=== PATIENT | female | born 1995 | race Caucasian/White ===

== ENCOUNTER 2018-05-07 13:51 | Emergency (ER) | payer MEDICAID, OTHER ==
[~2018-05-07] VITALS: Ht 170.2 cm; Wt 56.7 kg
[2018-05-07 13:58] VITALS: BP 122/68
--- NOTE | 2018-05-07 14:02 | NUR ---
PT AMBULATED TO BED 9 REPORT GIVEN TO MOMO EDMOND. URINE OBTAINED.
[2018-05-07] MEDS ORDERED: NACL 0.9% 1,000 ML IV SCH (14:26)
[2018-05-07] MEDS ORDERED: ONDANSETRON 4 MG/2 ML VIAL IVP ONE (14:30)
[2018-05-07] MEDS ORDERED: KETOROLAC 30 MG/ML VIAL IVP ONE (14:30)
[2018-05-07] MEDS ORDERED: MORPHINE SULFATE 2 MG/ML SYR IVP ONE (14:30)
--- NOTE | 2018-05-07 14:52 | NUR ---
PATIENT PRESENTS TO ED WITH RLQ PAIN NON RADIATING X LAST NIGHT---N/V YESTERDAY---MILD NAUSEA TODAY--NO REBOUND NOTED .DENIES WATERY/LOOSE STOOLS. SKIN IS PINK/WARM/DRY; AAOX4 WITH EVEN AND STEADY GAIT; LUNGS CLEAR BL; HR EVEN AND REGULAR; PT DENIES ANY FEVER, CP, SOB, OR COUGH AT THIS TIME; PATIENT STATES PAIN OF 7/10 AT THIS TIME; VSS; PATIENT POSITIONED FOR COMFORT; HOB ELEVATED; BEDRAILS UP X2; BED DOWN. ER MD MADE AWARE OF PT STATUS.
[2018-05-07 15:01] LABS: APPEARANCE,URINE CLEAR (CLEAR); BILIRUBIN,URINE NEGATIVE (NEGATIVE); BLOOD, URINE NEGATIVE (NEGATIVE); COLOR,URINE YELLOW (YELLOW); LEUKOCYTE ESTERASE ,URINE NEGATIVE (NEGATIVE); NITRITE, URINE NEGATIVE (NEGATIVE); UGLUCOSE NEGATIVE (NEGATIVE)
[2018-05-07 15:11] LABS: BASOPHILS % (AUTO) 0.3 % (0.0-2.0); EOSINOPHILS # (AUTO) 0.1 K/uL (0-0.4); EOSINOPHILS % (AUTO) 1.4 % (0.0-4.0); HEMATOCRIT 36.8 % (36-48); HEMOGLOBIN 12.2 g/dL (12.0-16.0); LYMPHOCYTES # (AUTO) 2.2 K/uL (2.5-16.5); LYMPHOCYTES % (AUTO) 30.7 % (20.5-51.1); MEAN CORPUSCULAR HEMOGLOBIN 28 pg (27-31); MEAN CORPUSCULAR HGB CONC 33 g/dL (33-37); MEAN CORPUSCULAR VOLUME 85.4 fL (80-94); MONOCYTES # (AUTO) 0.4 K/uL (0.8-1.0); MONOCYTES % (AUTO) 5.9 % (1.7-9.3); NEUTROPHILS # (AUTO) 4.3 K/uL (1.8-7.7); NEUTROPHILS % (AUTO) 61.7 % (42.2-75.2); PLATELET COUNT (AUTO) 348 K/uL (140-450); RED BLOOD CELL COUNT(AUTO) 4.31 MIL/uL (4.20-5.40); RED CELL DISTRIBUTION WIDTH 13.9 % (11.6-13.7)
--- NOTE | 2018-05-07 15:11 | NUR ---
BLOOD COLLECTED AT IV START--- [facility]
[2018-05-07 15:21] LABS: ANION GAP 12.2 (8-16); CARBON DIOXIDE 26.5 mmol/L (21-32); CREATININE 0.9 mg/dL (0.6-1.3); POTASSIUM 3.7 mmol/L (3.5-5.1)
[2018-05-07 15:27] LABS: ALBUMIN 4.4 g/dL (3.4-5.0); TOTAL BILIRUBIN 1.2 mg/dL (0.0-1.0)
--- NOTE | 2018-05-07 16:10 | NUR ---
Patient returned from CT scan. RN re-evaluating patient at bedside.
--- NOTE | 2018-05-07 17:10 | NUR ---
Patient discharged with v/s stable. Written and verbal after care instructions given and explained. Patient alert, oriented and verbalized understanding of instructions. Ambulatory with steady gait. All questions addressed prior to discharge. ID band removed. Patient advised to follow up with PMD. Rx of KETOROLAC given. Patient educated on indication of medication including possible reaction and side effects. Opportunity to ask questions provided and answered.
[2018-05-07 17:13] VITALS: BP 109/61
== END 2018-05-07 17:10 | disposition home or self-care (01) ==
LOC: MED 13:51
DX: N83.201 Unspecified ovarian cyst, right side (principal); R11.2 Nausea with vomiting, unspecified
CPT/HCPCS: 36415; 74177; 76856; 80053; 81002; 81003; 81025; 82150; 83690; 84703; 85025; 96361; 96374; 96375; 99285; J1885; J2270; J2405; Q9967

== ENCOUNTER 2018-05-26 23:03 | Emergency (ER) | payer OTHER ==
[~2018-05-26] VITALS: Ht 170.2 cm; Wt 54.4 kg
[2018-05-26 23:16] VITALS: BP 134/76
--- NOTE | 2018-05-26 23:16 | NUR ---
PT BIB FATHER, AMBULATED TO BED 8 IN ED FOR BEDSIDE TRIAGE.
--- NOTE | 2018-05-26 23:21 | NUR ---
REPORT TO PATRICK EDMOND
--- NOTE | 2018-05-26 23:41 | NUR ---
PT BIB SELF C/O LEFT WRIST SWELLING THAT STARTED AT WORK WELL MUSCLE "TIGHTNESS" FROM LEFT NECK TO LEFT HAND AND NUMBESS . PT CURRENTLY C/O LEFT SIDED NECK "TIGHTNESS". NO FACIAL DROPPING NOTED, PT HAS FULL CLEAR SENTENCES, PT LAYING IN BED, AWAKE AND ACTING APPROPRIATE. NO PMH, NKDA
--- NOTE | 2018-05-27 00:10 | NUR ---
PT LAYING IN BED, CALM, WILL CONTINUE TO MONITOR .
[2018-05-27] MEDS ORDERED: METOCLOPRAMIDE 10 MG/2 ML INJ VIAL IVP ONE (00:35)
[2018-05-27] MEDS ORDERED: NACL 0.9% 1,000 ML IV ONE (00:35)
[2018-05-27] MEDS ORDERED: DEXAMETHASONE 10 MG/ML VIAL IVP ONE (00:35)
[2018-05-27] MEDS ORDERED: diphenhydrAMINE 50 MG/ML VIAL IVP ONE (00:35)
[2018-05-27 02:13] LABS: BILIRUBIN,URINE NEGATIVE (NEGATIVE); BLOOD, URINE NEGATIVE (NEGATIVE); LEUKOCYTE ESTERASE ,URINE NEGATIVE (NEGATIVE); NITRITE, URINE NEGATIVE (NEGATIVE); PH,URINE 6.5 (5.0-9.0); UGLUCOSE NEGATIVE (NEGATIVE)
[2018-05-27 02:14] LABS: APPEARANCE,URINE CLEAR (CLEAR); COLOR,URINE YELLOW (YELLOW)
--- NOTE | 2018-05-27 02:17 | NUR ---
Patient discharged with v/s stable. Written and verbal after care instructions given and explained. Patient verbalized understanding. Ambulatory with steady gait. All questions addressed prior to discharge. Advised to follow up with PMD.
[2018-05-27 02:18] VITALS: BP 132/75
== END 2018-05-27 02:18 | disposition home or self-care (01) ==
LOC: MED 23:03
DX: M54.12 Radiculopathy, cervical region (principal); M79.642 Pain in left hand; R51 Headache; R20.2 Paresthesia of skin; N83.201 Unspecified ovarian cyst, right side
CPT/HCPCS: 81003; 81025; 96374; 96375; 99284; J1100; J1200; J2765; 99283

== ENCOUNTER 2019-09-07 06:42 | Day surgery (SDC) | payer OTHER ==
[~2019-09-07] VITALS: Ht 170.2 cm; Wt 59.4 kg
[2019-09-07] MEDS ORDERED: GLYCOPYRROLATE 0.2 MG/ML VIAL ONE (08:25)
[2019-09-07] MEDS ORDERED: ROCURONIUM 50 MG/5 ML VIAL IV ONE (08:25)
[2019-09-07] MEDS ORDERED: KETOROLAC 30 MG/ML VIAL ONE (08:25)
[2019-09-07] MEDS ORDERED: NEOSTIGMINE 1:1000 10 MG/10 ML VIAL ONE (08:25)
[2019-09-07] MEDS ORDERED: DEXAMETHASONE 4 MG/ML VIAL ONE (08:25)
[2019-09-07] MEDS ORDERED: DESFLURANE 240 ML BTL INH ONE (08:25)
[2019-09-07] MEDS ORDERED: LIDOCAINE 2% 100 MG/5 ML SYR IVP ONE (08:25)
[2019-09-07] MEDS ORDERED: ONDANSETRON 4 MG/2 ML VIAL ONE (08:25)
[2019-09-07] MEDS ORDERED: SUCCINYLCHOLINE CHLORIDE 200 MG/10 ML VIAL IVP ONE (08:25)
[2019-09-07] MEDS ORDERED: PROPOFOL 200 MG/20 ML VIAL IV ONE (08:25)
[2019-09-07] MEDS ORDERED: BUPIVACAINE-MPF/EPI 0.25% 30 ML VIAL INJ ONE (08:27)
[2019-09-07] MEDS ORDERED: MIDAZOLAM 2 MG/2 ML VIAL ONE (08:30)
[2019-09-07] MEDS ORDERED: fentaNYL 0.05 MG/ML VIAL ONE (08:30)
[2019-09-07] MEDS ORDERED: ONDANSETRON 4 MG/2 ML VIAL IVP PRN (08:55)
[2019-09-07] MEDS ORDERED: HYDROmorphone 1 MG/ML AMP IVP PRN (08:55)
== END 2019-09-07 11:20 | disposition home or self-care (01) ==
LOC: MDS 06:42 → MMU 06:44 → MDS 11:20
PROVIDERS: ATTEND Obstetrics & Gynecology
DX: N80.9 Endometriosis, unspecified (principal); G89.29 Other chronic pain; R10.2 Pelvic and perineal pain; F17.200 Nicotine dependence, unspecified, uncomplicated; Z98.890 Other specified postprocedural states; Z80.0 Family history of malignant neoplasm of digestive organs
CPT/HCPCS: 49320; J0330; J1100; J1885; J2001; J2250; J2405; J2704; J2710; J3010; J3490; J7120

== ENCOUNTER 2019-12-12 15:18 | Emergency (ER) | payer OTHER ==
[~2019-12-12] VITALS: Ht 170.2 cm; Wt 60.8 kg
[2019-12-12 15:20] VITALS: BP 108/70
--- NOTE | 2019-12-12 16:56 | NUR ---
Pt presents ambulatory to ED, c/o productive cough with thick brown mucus, x2 weeks. Pt reports SOB x1 week. Reports chest pain with coughing/deep breaths x4 days. Pt awake and alert, skin normal color warm and dry, rr even and ulnabored. Hx endometriosis
[2019-12-12 17:37] VITALS: BP 105/75
--- NOTE | 2019-12-12 17:38 | NUR ---
Patient discharged with v/s stable. Written and verbal after care instructions given and explained. Patient alert, oriented and verbalized understanding of instructions. Ambulatory with steady gait. All questions addressed prior to discharge. ID band removed. Patient advised to follow up with PMD. Rx of flonase, promethazine DM, ibuprofen given. Patient educated on indication of medication including possible reaction and side effects. Opportunity to ask questions provided and answered.
== END 2019-12-12 17:37 | disposition home or self-care (01) ==
LOC: MED 15:18
DX: B34.9 Viral infection, unspecified (principal)
CPT/HCPCS: 71045; 81002; 81025; 99283

== ENCOUNTER 2020-07-10 15:31 | Emergency (ER) | payer OTHER ==
[~2020-07-10] VITALS: Ht 170.2 cm; Wt 62.6 kg
[2020-07-10 15:43] VITALS: BP 150/99
--- NOTE | 2020-07-10 16:02 | NUR ---
C/O SHARP VAGINAL PAIN AND PELVIC PAIN X3 WEEKS. PT STATES SHE HAS HAD SURGERY FOR ENDOMETRIOSIS TWICE BEFORE AND IT FEELS LIKE THE SAME PAIN SHE HAD PRIOR TO THAT. PT STATES SHE HAS FREQUENT SPOTTING. DENIES NEW SEXUAL PARTNERS OR VAGINAL DISCHARGE. PT ALSO C/O BURNING FEELING TO BOTH BREASTS. PROVIDED PT WITH GOWN. BED IN LOW POSITION.
--- NOTE | 2020-07-10 16:47 | NUR ---
US AT BEDSIDE
[2020-07-10 17:02] LABS: APPEARANCE,URINE CLEAR (CLEAR); BILIRUBIN,URINE NEGATIVE (NEGATIVE); BLOOD, URINE 3+ (NEGATIVE); COLOR,URINE YELLOW (YELLOW); LEUKOCYTE ESTERASE ,URINE NEGATIVE (NEGATIVE); NITRITE, URINE NEGATIVE (NEGATIVE); PH,URINE 5.5 (5.0-9.0); UGLUCOSE NEGATIVE (NEGATIVE)
[2020-07-10 17:23] LABS: BASOPHILS % (AUTO) 0.4 % (0.0-2.0); EOSINOPHILS # (AUTO) 0.1 K/uL (0-0.4); EOSINOPHILS % (AUTO) 1.1 % (0.0-4.0); HEMATOCRIT 35.8 % (36-48); HEMOGLOBIN 11.9 g/dL (12.0-16.0); LYMPHOCYTES % (AUTO) 28.1 % (20.5-51.1); MEAN CORPUSCULAR HEMOGLOBIN 29 pg (27-31); MEAN CORPUSCULAR HGB CONC 33 g/dL (33-37); MEAN CORPUSCULAR VOLUME 85.8 fL (80-94); MONOCYTES # (AUTO) 0.5 K/uL (0.8-1.0); MONOCYTES % (AUTO) 6.4 % (1.7-9.3); NEUTROPHILS # (AUTO) 4.5 K/uL (1.8-7.7); PLATELET COUNT (AUTO) 358 K/uL (140-450); RED BLOOD CELL COUNT(AUTO) 4.17 MIL/uL (4.20-5.40); RED CELL DISTRIBUTION WIDTH 13.3 % (11.6-13.7); WHITE BLOOD COUNT (AUTO) 7.1 K/uL (4.8-10.8)
--- NOTE | 2020-07-10 17:30 | NUR ---
PENDING LAB RESULTS
[2020-07-10 17:33] LABS: ALBUMIN 3.7 g/dL (3.4-5.0); ANION GAP 10.9 (8-16); CARBON DIOXIDE 26.4 mmol/L (21-32); CREATININE 0.7 mg/dL (0.6-1.3); POTASSIUM 4.3 mmol/L (3.5-5.1); TOTAL BILIRUBIN 0.7 mg/dL (0.0-1.0)
[2020-07-10] MEDS ORDERED: KETOROLAC 30 MG/ML VIAL IM ONE (17:50)
--- NOTE | 2020-07-10 17:51 | NUR ---
DR MACKENZIE NOTIFIED THAT PT HAS PAIN 03/27 Addendum: 07/10/20 at [id number] by [email or web address] H/A
[2020-07-10] MEDS: IBUPROFEN 600 MG TAB PO ONE (17:55)
--- NOTE | 2020-07-10 17:55 | NUR ---
MOTRIN PO ADMINISTERED
[2020-07-10 17:57] LABS: RBC,URINE 20-50 /HPF (0-5); WBC,URINE 0-5 /HPF (0-5)
[2020-07-10 18:22] VITALS: BP 113/70
--- NOTE | 2020-07-10 18:22 | NUR ---
Patient discharged with v/s stable. Written and verbal after care instructions given and explained. Patient alert, oriented and verbalized understanding of instructions. Ambulatory with steady gait. All questions addressed prior to discharge. ID band removed. Patient advised to follow up with PMD. Rx of MIRALAX, AND NORCO given. Patient educated on indication of medication including possible reaction and side effects. Opportunity to ask questions provided and answered. PT ISNTRUCTED TO NOT DRIVE AFTER TAKING NORCO IT MAY IMPAIR DRIVING AND CAUSE DROWSINESS EXPLAINED THAT US IS NEGATIVE AND LABS ARE WNL
--- NOTE | 2020-07-10 18:22 | NUR ---
NADR, PAIN 12/25
== END 2020-07-10 18:22 | disposition home or self-care (01) ==
LOC: MED 15:31
DX: R10.9 Unspecified abdominal pain (principal); Z98.890 Other specified postprocedural states
CPT/HCPCS: 36415; 76856; 80053; 81001; 81025; 84702; 85025; 93976; 99284; Q0092

== ENCOUNTER 2021-04-24 15:17 | Emergency (ER) | payer OTHER ==
[~2021-04-24] VITALS: Ht 170.2 cm; Wt 59.0 kg
[2021-04-24 15:21] VITALS: BP 120/77
--- NOTE | 2021-04-24 15:26 | NUR ---
ROB. HANDED ON URINE CUP.
--- NOTE | 2021-04-24 16:09 | NUR ---
Patient ambulated to bed 10. RN evaluating the patient at bedside.
[2021-04-24] MEDS ORDERED: KETOROLAC 15 MG/ML VIAL IM ONE (16:25)
--- NOTE | 2021-04-24 16:39 | NUR ---
C/O LLQ ABD PAINLEFT LOWER BACK & LEFT THIGH , NAUSEA X LAST NIGHT. PMH: TIM OVARIAN CYST, ENDOMETRIOSIS
[2021-04-24 16:40] LABS: BASOPHILS % (AUTO) 0.5 % (0.0-2.0); EOSINOPHILS # (AUTO) 0.1 K/uL (0-0.4); EOSINOPHILS % (AUTO) 1.5 % (0.0-4.0); HEMATOCRIT 38.7 % (36-48); LYMPHOCYTES # (AUTO) 1.8 K/uL (2.5-16.5); LYMPHOCYTES % (AUTO) 25.5 % (20.5-51.1); MEAN CORPUSCULAR HEMOGLOBIN 29 pg (27-31); MEAN CORPUSCULAR HGB CONC 34 g/dL (33-37); MEAN CORPUSCULAR VOLUME 87.6 fL (80-94); MONOCYTES # (AUTO) 0.3 K/uL (0.8-1.0); MONOCYTES % (AUTO) 4.9 % (1.7-9.3); NEUTROPHILS # (AUTO) 4.8 K/uL (1.8-7.7); NEUTROPHILS % (AUTO) 67.6 % (42.2-75.2); PLATELET COUNT (AUTO) 359 K/uL (140-450); RED BLOOD CELL COUNT(AUTO) 4.42 MIL/uL (4.20-5.40); RED CELL DISTRIBUTION WIDTH 13.4 % (11.6-13.7); WHITE BLOOD COUNT (AUTO) 7.2 K/uL (4.8-10.8)
[2021-04-24 16:52] LABS: PROTHROMBIN TIME 10.8 secs (10.8-13.4)
[2021-04-24 16:56] LABS: ALBUMIN 4.6 g/dL (3.4-5.0); CREATININE 0.6 mg/dL (0.6-1.3); TOTAL BILIRUBIN 1.1 mg/dL (0.0-1.0)
[2021-04-24] MEDS ORDERED: IBUP-2213 PO (18:45)
[2021-04-24 18:52] VITALS: BP 120/77
== END 2021-04-24 18:51 | disposition home or self-care (01) ==
LOC: MED 15:17
DX: M54.5 Low back pain (principal); R10.32 Left lower quadrant pain; R11.0 Nausea
CPT/HCPCS: 36415; 76830; 76856; 80053; 81025; 85025; 85610; 96372; 99285; J1885; 99284

== ENCOUNTER 2022-02-16 15:23 | Observation (INO) | payer OTHER ==
[~2022-02-16] VITALS: Ht 170.2 cm; Wt 64.9 kg
[~2022-02-16 15:23] MED LIST: IBUP-2213 PO
[2022-02-16] MEDS ORDERED: PYRI25TA15 PO (16:06)
[2022-02-16] MEDS ORDERED: PNV1TABL5 PO (16:06)
[2022-02-16 16:28] VITALS: BP 114/75
== END 2022-02-16 17:35 | disposition home or self-care (01) ==
LOC: MLD 15:23
PROVIDERS: ADMIT Obstetrics & Gynecology; ATTEND Obstetrics & Gynecology
DX: O26.892 Other specified pregnancy related conditions, second trimester (principal); R10.9 Unspecified abdominal pain; Z20.822 Contact with and (suspected) exposure to COVID-19; Z3A.25 25 weeks gestation of pregnancy; Z87.891 Personal history of nicotine dependence
CPT/HCPCS: 59025; 87426; G0378

== ENCOUNTER 2022-03-05 11:16 | Emergency (ER) | payer OTHER ==
[~2022-03-05] VITALS: Ht 170.4 cm; Wt 65.0 kg
[~2022-03-05 11:16] MED LIST changes: -IBUP-2213 PO; +PNV1TABL5 PO; +PYRI25TA15 PO
[2022-03-05 11:18] VITALS: BP 102/66
--- NOTE | 2022-03-05 11:22 | NUR ---
PT AMB TO BED 2.
[2022-03-05] MEDS ORDERED: DOPPLER MC ONE (11:28)
--- NOTE | 2022-03-05 12:01 | NUR ---
26/F PRESENTS TO ED WITH C/O NAUSEA AND TWO EPISODES OF VOMITING SINCE THIS MORNING. PATIENT STATES SHE HAD "BRIGHT RED BLOOD" IN BOTH EPISODES OF VOMITING, DENIES HISTORY OF HEMATEMESIS, DENIES ABDOMINAL PAIN, DIARRHEA OR URINARY SYMPTOMS. REPORTS NAUSEA AT THIS TIME. PATIENT IS CURRENTLY 27 WEEKS , A0.
[2022-03-05] MEDS ORDERED: ALUMINUM HYD/MAG/SIMETHICONE 30 ML UDC PO ONE (12:25)
[2022-03-05] MEDS ORDERED: FAMOTIDINE 20 MG TAB PO ONE (12:25)
--- NOTE | 2022-03-05 12:30 | NUR ---
LAB AT BEDSIDE FOR BLOOD DRAW
[2022-03-05 13:10] LABS: BASOPHILS % (AUTO) 0.2 % (0.0-2.0); EOSINOPHILS # (AUTO) 0.1 K/uL (0-0.4); EOSINOPHILS % (AUTO) 0.9 % (0.0-4.0); HEMATOCRIT 29.5 % (36-48); HEMOGLOBIN 10.1 g/dL (12.0-16.0); LYMPHOCYTES # (AUTO) 1.5 K/uL (2.5-16.5); LYMPHOCYTES % (AUTO) 16.5 % (20.5-51.1); MEAN CORPUSCULAR HEMOGLOBIN 29 pg (27-31); MEAN CORPUSCULAR HGB CONC 34 g/dL (33-37); MEAN CORPUSCULAR VOLUME 83.8 fL (80-94); MONOCYTES # (AUTO) 0.5 K/uL (0.8-1.0); MONOCYTES % (AUTO) 5.7 % (1.7-9.3); NEUTROPHILS % (AUTO) 76.7 % (42.2-75.2); PLATELET COUNT (AUTO) 291 K/uL (140-450); RED BLOOD CELL COUNT(AUTO) 3.52 MIL/uL (4.20-5.40); RED CELL DISTRIBUTION WIDTH 13.3 % (11.6-13.7); WHITE BLOOD COUNT (AUTO) 9.1 K/uL (4.8-10.8)
[2022-03-05 13:11] LABS: PROTHROMBIN TIME 10.4 secs (10.8-13.4)
[2022-03-05 13:18] LABS: ALBUMIN 2.9 g/dL (3.4-5.0); ANION GAP 12.2 (8-16); CARBON DIOXIDE 22.9 mmol/L (21-32); CREATININE 0.4 mg/dL (0.6-1.3); POTASSIUM 4.1 mmol/L (3.5-5.1); TOTAL BILIRUBIN 0.3 mg/dL (0.0-1.0)
[2022-03-05] MEDS ORDERED: FAMO-90 PO (13:24)
[2022-03-05] MEDS ORDERED: ALUM355S5 PO (13:24)
[2022-03-05 14:03] VITALS: BP 95/69
--- NOTE | 2022-03-05 14:03 | NUR ---
Patient discharged with v/s stable. Written and verbal after care instructions ABOUT HEMATEMESIS given and explained. Patient alert, oriented and verbalized understanding of instructions. Ambulatory with steady gait. All questions addressed prior to discharge. ID band removed. Patient advised to follow up with PMD. Rx of ADVANCED ANTACID LIQUID AND PEPCID given. Patient educated on indication of medication including possible reaction and side effects. Opportunity to ask questions provided and answered.
== END 2022-03-05 14:03 | disposition home or self-care (01) ==
LOC: MED 11:16
DX: O26.892 Other specified pregnancy related conditions, second trimester (principal); K92.0 Hematemesis; Z3A.26 26 weeks gestation of pregnancy; Z79.899 Other long term (current) drug therapy
CPT/HCPCS: 36415; 80053; 81002; 81025; 83690; 85025; 85610; 85730; 99283

== ENCOUNTER 2022-06-22 17:40 | Emergency (ER) | payer OTHER ==
[~2022-06-22] VITALS: Ht 170.2 cm; Wt 64.4 kg
[~2022-06-22 17:40] MED LIST changes: +ALUM355S5 PO; +FAMO-90 PO
[2022-06-22 18:06] VITALS: BP 93/41
--- NOTE | 2022-06-22 18:32 | NUR ---
26/F PRESENTS TO ED STATING SHE [place] [facility] [place]P [place]IVERY. PATIENT STATING "I THINK THE SUTURES OPENED UP" RPEORTS INCREASED VAGINAL BLEEDING SINCE YESTERDAY, PATIENT ALSO REPORTING DYSURIA TODAY, DENIES RECENT FEVERS OR CHILLS, REPORTS TAKING MOTRIN WITH SOME RELIEF. DENIES N/V/D, CP, SOB.
--- NOTE | 2022-06-22 18:55 | NUR ---
PT STATES SHE IS UNABLE TO PROVIDE URINE AT THIS TIME
[2022-06-22 19:14] LABS: BASOPHILS % (AUTO) 0.4 % (0.0-2.0); EOSINOPHILS # (AUTO) 0.2 K/uL (0-0.4); HEMATOCRIT 29.6 % (36-48); HEMOGLOBIN 9.9 g/dL (12.0-16.0); LYMPHOCYTES # (AUTO) 2.1 K/uL (2.5-16.5); LYMPHOCYTES % (AUTO) 23.1 % (20.5-51.1); MEAN CORPUSCULAR HEMOGLOBIN 28 pg (27-31); MEAN CORPUSCULAR HGB CONC 33 g/dL (33-37); MEAN CORPUSCULAR VOLUME 82.9 fL (80-94); MONOCYTES # (AUTO) 0.5 K/uL (0.8-1.0); MONOCYTES % (AUTO) 6.1 % (1.7-9.3); NEUTROPHILS # (AUTO) 6.2 K/uL (1.8-7.7); NEUTROPHILS % (AUTO) 68.4 % (42.2-75.2); PLATELET COUNT (AUTO) 480 K/uL (140-450); RED BLOOD CELL COUNT(AUTO) 3.57 MIL/uL (4.20-5.40); RED CELL DISTRIBUTION WIDTH 14.1 % (11.6-13.7)
--- NOTE | 2022-06-22 19:17 | NUR ---
Pt report given to DANIELA GARZA. Transfer of care at this time.
[2022-06-22 19:33] LABS: ALBUMIN 2.8 g/dL (3.4-5.0); ANION GAP 13.7 (8-16); CARBON DIOXIDE 23.2 mmol/L (21-32); CREATININE 0.7 mg/dL (0.6-1.3); POTASSIUM 3.9 mmol/L (3.5-5.1); TOTAL BILIRUBIN 0.4 mg/dL (0.0-1.0)
--- NOTE | 2022-06-22 19:53 | NUR ---
CHRISTOPHER HARRIS FOR PELVIC EXAM. SWABS COLLECTED AND SENT TO LAB
[2022-06-22] MEDS ORDERED: cefTRIAXone 500 MG in LIDOCAINE MPF 1% 1 ML IM ONE (20:05)
[2022-06-22] MEDS ORDERED: CLIN-223 PO (20:09)
[2022-06-22] MEDS ORDERED: CEPH-588 PO (20:09)
[2022-06-22] MEDS ORDERED: cefTRIAXone 500 MG VIAL ONE (20:12)
[2022-06-22] MEDS ORDERED: LIDOCAINE MPF 1% 5 ML ONE (20:13)
[2022-06-22 20:27] VITALS: BP 106/70
--- NOTE | 2022-06-22 20:27 | NUR ---
Chart checked and completed.
--- NOTE | 2022-06-22 20:27 | NUR ---
Patient discharged with v/s stable. Written and verbal after care instructions given and explained. Patient verbalized understanding. Ambulatory with . All questions addressed prior to discharge. Advised to follow up with PMD.
--- NOTE | 2022-06-22 20:42 | NUR ---
26YR OLD FEMALE BIB SELF C/O VAG PAIN S/P 1 WEEK POST PART. PT HAD VAG DELIVERY ONE WEEK AGO. HAD STICHES ON LABIA PAIN LEVEL /10. DENIES DISCHARGE NORMAL VAG BLEEDING FOR POST DELIVERY. NO DISTRESS NOTED. HOB ELEVATED. BED AT LOWEST POSITION NKDA NO MED HX
[2022-06-22 20:44] LABS: APPEARANCE,URINE CLOUDY (CLEAR); BILIRUBIN,URINE NEGATIVE (NEGATIVE); BLOOD, URINE 3+ (NEGATIVE); COLOR,URINE YELLOW (YELLOW); LEUKOCYTE ESTERASE ,URINE 1+ (NEGATIVE); NITRITE, URINE NEGATIVE (NEGATIVE); PH,URINE 6.5 (5.0-9.0); UGLUCOSE NEGATIVE (NEGATIVE)
[2022-06-22 20:56] LABS: RBC,URINE 20-50 /HPF (0-5); WBC,URINE TOO MANY TO COUNT /HPF (0-5)
== END 2022-06-22 20:27 | disposition home or self-care (01) ==
LOC: MED 17:40
DX: O90.1 Disruption of perineal obstetric wound (principal); O86.09 Infection of obstetric surgical wound, other surgical site; Z79.899 Other long term (current) drug therapy
CPT/HCPCS: 36415; 80053; 81001; 85025; 87070; 87086; 87210; 87491; 96372; 99283; J0696; J2001; 87075; 87205

== ENCOUNTER 2023-12-09 11:12 | Emergency (ER) | payer OTHER ==
[~2023-12-09] VITALS: Ht 170.2 cm; Wt 60.3 kg
[~2023-12-09 11:12] MED LIST changes: -ALUM355S5 PO; +CEPH-588 PO; +CLIN-223 PO; +MAG-43 PO
[2023-12-09 11:21] VITALS: BP 108/63; PULSE 105; RESP 16; TEMP 97.9; O2SAT 98
[2023-12-09] MEDS ORDERED: IBUP-2218 PO (12:50)
[2023-12-09 13:03] VITALS: BP 112/82; PULSE 88; RESP 16; TEMP 98; O2SAT 99
== END 2023-12-09 13:03 | disposition home or self-care (01) ==
LOC: MED 11:12
DX: R19.09 Other intra-abdominal and pelvic swelling, mass and lump (principal); Z79.899 Other long term (current) drug therapy
CPT/HCPCS: 99282

== ENCOUNTER 2024-07-12 09:27 | Emergency (ER) | payer OTHER ==
[~2024-07-12] VITALS: Ht 170.2 cm; Wt 59.5 kg
[~2024-07-12 09:27] MED LIST changes: +IBUP-2218 PO
[2024-07-12 09:38] VITALS: BP 108/77; PULSE 89; RESP 19; TEMP 97.7; O2SAT 99
[2024-07-12 11:02] LABS: BASOPHILS % (AUTO) 0.1 % (0.0-2.0); EOSINOPHILS # (AUTO) 0.1 K/uL (0-0.4); EOSINOPHILS % (AUTO) 0.8 % (0.0-4.0); HEMATOCRIT 37.8 % (36-48); HEMOGLOBIN 12.9 g/dL (12.0-16.0); LYMPHOCYTES # (AUTO) 1.3 K/uL (2.5-16.5); LYMPHOCYTES % (AUTO) 12.3 % (20.5-51.1); MEAN CORPUSCULAR HEMOGLOBIN 29 pg (27-31); MEAN CORPUSCULAR HGB CONC 34 g/dL (33-37); MEAN CORPUSCULAR VOLUME 83.6 fL (80-94); MONOCYTES # (AUTO) 0.9 K/uL (0.8-1.0); MONOCYTES % (AUTO) 8.7 % (1.7-9.3); NEUTROPHILS # (AUTO) 8.3 K/uL (1.8-7.7); NEUTROPHILS % (AUTO) 78.1 % (42.2-75.2); PLATELET COUNT (AUTO) 292 K/uL (140-450); RED BLOOD CELL COUNT(AUTO) 4.52 MIL/uL (4.20-5.40); RED CELL DISTRIBUTION WIDTH 13.7 % (11.6-13.7); WHITE BLOOD COUNT (AUTO) 10.7 K/uL (4.8-10.8)
[2024-07-12 11:06] LABS: APPEARANCE,URINE CLEAR (CLEAR); BILIRUBIN,URINE NEGATIVE (NEGATIVE); BLOOD, URINE 1+ (NEGATIVE); COLOR,URINE YELLOW (YELLOW); LEUKOCYTE ESTERASE ,URINE NEGATIVE (NEGATIVE); NITRITE, URINE NEGATIVE (NEGATIVE); PH,URINE 5.5 (5.0-9.0); PROTEIN,URINE NEGATIVE (NEGATIVE); UGLUCOSE NEGATIVE (NEGATIVE); UROBILINOGEN,URINE 0.2 EU/dL (0.2 - 1)
[2024-07-12 11:11] LABS: BACTERIA,URINE OCCASSIONAL /HPF (None Seen); RBC,URINE 0-5 /HPF (0-5); WBC,URINE 0-5 /HPF (0-5)
[2024-07-12 11:12] LABS: MUCUS,URINE 1+ /LPF (None Seen); SQUAMOUS EPITHELIAL CELL,UR 0-3 (FEW) /LPF (0-3 (FEW))
[2024-07-12 11:15] LABS: CARBON DIOXIDE 24.2 mmol/L (21-32); CREATININE 0.6 mg/dL (0.6-1.3); POTASSIUM 4.2 mmol/L (3.5-5.1)
[2024-07-12 11:21] LABS: ALBUMIN 3.9 g/dL (3.4-5.0); BILIRUBIN,DIRECT 0.3 mg/dL (0.0-0.3); TOTAL BILIRUBIN 1.2 mg/dL (0.0-1.0); TOTAL PROTEIN, SERUM 7.7 g/dL (6.4-8.2)
[2024-07-12] MEDS ORDERED: IBUP-2213 PO (12:36)
[2024-07-12] MEDS ORDERED: ONDA8TAB87 PO (12:36)
[2024-07-12 12:54] VITALS: BP 119/64; PULSE 78; RESP 19; TEMP 98; O2SAT 98
== END 2024-07-12 12:54 | disposition home or self-care (01) ==
LOC: MED 09:27
DX: R10.31 Right lower quadrant pain (principal); R11.2 Nausea with vomiting, unspecified; F17.210 Nicotine dependence, cigarettes, uncomplicated; Z98.890 Other specified postprocedural states; Z79.899 Other long term (current) drug therapy
CPT/HCPCS: 36415; 80048; 80076; 81001; 81025; 83690; 85025; 99284